=== PATIENT | female | born 1995 | race Caucasian/White ===

== ENCOUNTER 2018-10-02 23:22 | Emergency (ER) | payer BC, OTHER ==
[~2018-10-02] VITALS: Ht 165.1 cm; Wt 148.4 kg
[~2018-10-02 23:22] MED LIST: HYDR-3980 PO; IBUP800T48 PO; ONDA4TAB14 PO; TAMS-14 PO
[2018-10-02 23:32] VITALS: Ht 165.1 cm; Wt 148.4 kg
[2018-10-03] MEDS ORDERED: ACETAMINOPHEN 500 MG TAB PO STA (00:16)
[2018-10-03] MEDS ORDERED: SOD CHLORIDE 0.9% 1,000 ML IV STA (00:16)
[2018-10-03] MEDS ORDERED: IOHEXOL 300MG/ML 150 ML BTL ONE (01:24)
[2018-10-03] MEDS ORDERED: SOD CHLORIDE 0.9% 100 ML ONE (01:24)
[2018-10-03] MEDS ORDERED: ONDA4TAB14 PO (01:59)
[2018-10-03] MEDS ORDERED: IBUP800T48 PO (01:59)
[2018-10-03] MEDS ORDERED: HYDR-4011 PO (01:59)
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
[2018-10-03 02:10] VITALS: BP 144/81; PULSE 79; RESP 20
== END 2018-10-03 02:28 | disposition home or self-care (01) ==
LOC: E/R 23:22
DX: S20.219A Contusion of unspecified front wall of thorax, initial encounter (principal); S09.90XA Unspecified injury of head, initial encounter; S27.329A Contusion of lung, unspecified, initial encounter; R07.89 Other chest pain; R51 Headache; V89.2XXA Person injured in unspecified motor-vehicle accident, traffic, initial encounter
CPT/HCPCS: 70450; 71260; 80048; 81025; 85025; 85610; 85730; 93005; 99285; J7030; Q9967